=== PATIENT | female | born 1965 | race Caucasian/White ===

== ENCOUNTER → 2017-02-05 | Day surgery (SDC) | payer BC ==
[~2017-02-05] MED LIST: BUPIVACAINE/EPINEPHRINE 0.5% 50 ML VIAL ONE; ISOSULFAN BLUE 50 MG/5 ML VIAL SQ ONE; LACTATED RINGER'S 1000 ML INJ 1,000 ML ONE; MIDAZOLAM HCL 2 MG/2 ML VIAL ONE; ONDANSETRON HCL 4 MG/2 ML VIAL IV PUSH ONE; PROPOFOL 200 MG/20 ML AMP IV ONE; ceFAZolin 2 GM PREMIX 50 ML ONE
--- NOTE | 2017-02-05 22:37 | TN ---
cc: NELY SIFUENTES M.D. DATE OF SURGERY 02/05/2017 PREOPERATIVE DIAGNOSIS Invasive ductal carcinoma of the left breast. POSTOPERATIVE DIAGNOSIS Invasive ductal carcinoma of the left breast. PROCEDURES PERFORMED 1. Injection and excision sentinel lymph nodes left axilla. 2. Needle-localized left breast lumpectomy. 3. Placement intraoperative radiation therapy device. SURGEON Nely Sifuentes MD WEATHER [employer]CHOR [place] Royla ANESTHESIA General LMA. COMPLICATIONS None. INDICATIONS FOR PROCEDURE Ms. Coreas is a very pleasant 51-year-old female who was noted to have left breast mammographic abnormality. She underwent percutaneous biopsy and it was found to be an invasive ductal carcinoma. She underwent MRI imaging which did not show any additional lesions of concern. The patient was offered lumpectomy versus mastectomy. The patient elected have lumpectomy. The patient referred to Dr. Jc Carpenter of radiation therapy who offered whole breast, partial breast or intraoperative radiation therapy. The patient elected to have intraoperative radiation therapy. Risks and benefits of all procedures was discussed with her in detail and she was agreeable. INTRAOPERATIVE FINDINGS Left axillary sentinel node was immediately identified, found be blue and have a count of 6026. A second smaller node was identified and found have a count of 396. A third smaller node was also identified and found have a count of 2947. It should be noted the sentinel nodes 2 and 3 were not blue. Axillary tissue where the first two sentinel nodes were identified contained a large amount of blue dye and therefore, was excised and sent as additionally axillary tissue. No other palpable nodes were identified. DETAILS OF PROCEDURE The patient was identified, brought to the operating room placed supine on the operating table. After adequate general anesthesia achieved with LMA, the left breast was prepped and draped in standard surgical fashion. 5 cc of isosulfan blue was injected in the periareolar space as well as along the wire localization which occurred from lateral to medial in the upper inner quadrant of the left breast. This was then massaged into the breast. Several minutes were allowed to pass. Probe was used to identify the approximate location of the sentinel node which had been marked by radiology preoperatively. 0.25% Marcaine was injected in the axilla directly overlying the site of maximum intensity. A semilunar axillary incision was then made. Dissection was carried down through subcutaneous tissue into the axilla proper. Immediately we encountered a blue node with multiple blue channels going to it. This was grasped with Allis clamp and excised. This was labeled sentinel node number one and found have a 10-second count of 6026. Once we removed this node there were two smaller nodes adjacent to it which were also demonstrating significant activity. The first node was smaller and pink, it did not have any blue dye and was found have a count 376. The node just above this one was also quite active but did not have any blue dye. It was excised and found have a 10-second count of 2947. Once we excised these two nodes there was additional ammy tissue adjacent to the area which a large amount of blue dye had infiltrated. There were no palpable nodes but there was noted to be a moderate amount of activity with the probe and a large amount of blue dye. This was grasped with Allis clamp and excised with generous margins to include all of the blue dye. Once we did this, there were no other areas of blue dye nor was there any significant activity noted with the probe. By direct palpation I could not palpate any additional nodes. At this point we felt comfortable that we had a generous sampling of the axillary nodes by both the probe and blue dye technique. There were no palpable nodes noted except for the very first node which was excised. Wound was copiously irrigated normal saline solution. Because we did do a fair amount of dissection in the axilla, I elected to place a 7-Estonian drain. 0.25% Marcaine was injected in the left axilla and the drain was brought in through a separate stab wound incision. Drain was secured with a 4-0 nylon suture. Wound was copiously irrigated with normal saline solution and closed in two layers using 3-0 Vicryl and a 4-0 Monocryl. The wound was then infiltrated with 10 mL of 0.25% Marcaine through the drain. Drain was not placed on suction at this time. Attention now directed to the left breast. In the left breast the patient had a wire localization coming in from a lateral approach to the mass which was in the upper inner quadrant of the left breast at approximately the 10 to 11 o'clock position. Because the lesion was quite high we were unable to do a periareolar incision and therefore did an incision care home between the lesion and the areola sparing within the patient's natural kelly lines. A semilunar incision was made after anesthetizing the skin and subcutaneous tissue with 0.25% Marcaine. Subcutaneous skin flap was then raised cephalad to the wire. Base of the wire was identified in the medial position. By imaging the mass appeared to be between the tip of the wire and the miryam. We went ahead excised all breast tissue down to the base of the wire with a generous margin. Generous margins were then obtained inferiorly and laterally. Dissection then proceeded down deep to the pectoralis major muscle as the patient had subpectoral implants. The wire was then transected and the specimen was then removed. The wire was inspected and again there was generous margins in all directions with the wire in the center of the specimen. All tissue was excised posteriorly as we were able to clearly visualize the pectoralis major muscle. Short stitch was placed superior, a long stitch was placed medial and the wire demarcated the lateral position. Specimen sent to radiology where Dr. Ortiz called back stating the ultrasound demonstrated the mass to be in the center of the specimen with generous margins by ultrasound imaging. Specimen sent to pathology. Wound was then copiously irrigated with normal saline solution. The wound was inspected and was found to have fairly significant medial to lateral dimension. As the lesion was located in the upper inner quadrant of the breast, I went ahead and closed the breast tissue down in the lateral position where the wire localization had occurred. This was accomplished using 3-0 Vicryl suture. Once we did this the cavity was sized up. We selected a 4.5 probe for the intraoperative radiation device. This was tested in the wound and found have good approximation all the way around. We also checked the depth of the probe and it was found to be greater than 1 cm in all directions. The closest margin was the superior margin. We measured this margin twice, one at 1 cm and one at 8 mm. Therefore we went ahead and attached the device to the machine. The machine was then sterilely draped out. The machine was then brought into the operative field. A 0 Prolene suture was used to make a pursestring around the subcutaneous tissue of the breast. The probe was then introduced and trajected in a lateral to medial fashion and toward the upper inner quadrant of the breast. The pursestring was then cinched down. The skin edges were then reapproximated up onto the shaft of the probe. The ultrasound was then brought in the operative field and Dr. Carpenter measured all dimensions to greater than a centimeter. We did double-check the superior margin which was the closest to the skin and we had tunneled up to the lesion. This measured 8 mm the first time and 1 cm the second time. At this point I felt comfortable with all margins. The shaft of the intraoperative radiation device was covered with a moist laparotomy pad. The lead panchal were then placed. The patient then received approximately 25 minutes of intraoperative radiation therapy. Please see Dr. Carpenter's documentation for the specifics. Once this was completed we reentered the room. The Prolene suture was taken down. The probe was then removed and passed off of the operative field. Wound was copiously irrigated with normal saline solution. Bleeding points were controlled electrocautery Bovie. Wound was then irrigated out a second time and all loose fatty particles were removed. The lumpectomy cavity was then filled with 10 mL of 0.25% Marcaine. The subcutaneous tissue was then closed with 3-0 Vicryl and skin was closed with 4-0 Vicryl. Sterile dressings were applied. The patient was awakened, brought to recovery in stable condition. Please note the presence of the DISTRICT [employer] first assist was medically necessary due to the surgical complexity of the case as well as the knowledge of my surgical technique. She was present and scrubbed for the entire case. MD ALISON Girard/COREY /9:47 PM /10:14 PM SANDEE
--- NOTE | 2017-02-06 08:10 | RADONCENDT ---
END OF TREATMENT SUMMARY PRIMARY REFERRING PHYSICIAN: Leandro Salas CC: Leandro Salas DIAGNOSIS: Primary C50.212 - Malignant neoplasm of upper-inner quadrant of left female breast, Diagnosed 12/03/2016 (Active) PRESCRIPTION AND TREATMENT: 2000 cGy to surface of applicator-4.0 TREATED PLAN FRACTIONS AND DATES: Course: One fraction delivered on 02/05/2017 TOLERANCE: Patient completed treatment without complications. FOLLOW UP PLAN: Patient to be seen in 2 weeks or so to see Dr. Salas this Saturday. Jc Carpenter MD 02/06/2017 8:12:58 AM This report was verified and signed electronically [facility] [address] [place] [address] RADIATION ONCOLOGY END OF TREATMENT SUMMARY Date: 02/06/2017 Patient Name: Tessy Coreas Date of : 1965 Age: 51 Sex: Female
--- NOTE | 2017-02-06 08:12 | RADONCOP ---
OPERATIVE REPORT DATE OF SURGERY: 02/05/2017 REFERRING PHYSICIAN: Leandro Salas PREOPERATIVE DIAGNOSIS: C50.212 - Malignant neoplasm of upper-inner quadrant of left female breast, Diagnosed 12/03/2016 (Active) POSTOPERATIVE DIAGNOSIS: C50.212 - Malignant neoplasm of upper-inner quadrant of left female breast, Diagnosed 12/03/2016 (Active) PROCEDURE: Intraoperative Radiation Therapy to the . SURGEON: Leandro Salas ANESTHESIA: General ESTIMATED BLOOD LOSS: Minimal. INDICATIONS: Patient is a 51 year old female presenting with left breast cancer. She has elected to receive targeted intraoperative radiation therapy to the left breast. DESCRIPTION OF PROCEDURE: Patient was taken to the operating room and placed on the table in the supine position. Following induction of general anesthesia, the Zeiss and arm were prepped and draped sterilely. Ultrasound was performed of the breast to document the location of the breast malignancy. The wound was prepared for intraoperative radiation therapy. Based on the diameter of the cavity, a 4.0 cm radiation applicator was selected for the delivery of intraoperative radiation therapy. The applicator was then sterilely mounted onto the Intrabeam Stand. Retracting sutures were placed within the skin to be used to retract the skin edges away from the radiation source. The 4.0 cm Radiation applicator was then sterilely inserted into the wound. The superficial purse-string suture was tied down. Ultrasound was performed of the breast to document conformity of the surgical margins and the distance from the applicator to the skin surface (0.9 cm). The retracting sutures were then secured and a moistened lap pad was placed on the skin surface, followed by an external radiation barrier. Intraoperative radiotherapy was then initiated by the Radiation Oncologist. Total treatment time was 25-30 minutes. Upon completion of the intraoperative radiotherapy treatment, the radiation applicator, purse-string sutures and retracting sutures were removed from the wound. The wound was once again irrigated. Hemostasis was confirmed. The patient was then turned back over to the surgeon, Leandro Salas in stable condition for completion of surgical procedure. Jc Carpenter MD 02/06/2017 8:12:10 AM This report was verified and signed electronically [facility] [address] [place] [address] RADIATION ONCOLOGY OPERATIVE REPORT Date: 02/06/2017 Patient Name: Tessy Coreas
--- NOTE | 2017-02-08 11:10 | RF ---
cc: JC CARPENTER MD, MARK W. M.D. F o l l o w u p R e p o r t DATE OF SERVICE: 02/05/2017 AGE: 51 SEX: F Ms. Coreas is a 51-year-old female. She underwent lumpectomy, [place] node evaluation performed by Dr. Salas. Subsequently underwent intraoperative radiation therapy. A 4.0 device used. I was present during the entire treatment delivery and ultrasound confirmed proximity of device surface to skin 0.9 cm or more. Photo documentation done of superior, as well as medial areas. The closest area was 0.9 cm. All other were greater than one. She subsequently underwent closure. She sees Dr. Salas this Saturday. We will plan follow-up in approximately two weeks. Jc Carpenter MD Radiation Oncologist JOSE A/TEREZA /4:47 PM /11:12 AM
--- NOTE | 2017-02-08 11:12 | RF ---
cc: MAITE CARPENTER MD, MARK W. M.D. F o l l o w u p R e p o r t DATE OF SERVICE: 02/05/2017 AGE: 50 SEX: F Ms. Coreas is a 50-year-old female who underwent intraoperative radiation therapy. 20 Gy prescribed to the surface. 4.0 cone used. I was present for the entire treatment delivery. Dr. Leandro Salas performed lumpectomy, sentinel node and the closure. Plan follow-up in approximately two weeks. Maite Carpenter MD Radiation Oncologist JOSE A/TEREZA /4:48 PM /11:14 AM
== END | disposition home or self-care (01) ==
LOC: ESDC 09:20
PROVIDERS: ATTEND Surgery Trauma Surgery
DX: C50.212 Malignant neoplasm of upper-inner quadrant of left female breast (principal)
CPT/HCPCS: 00400; 01610; 19125; 19298; 38525; 38792; 77290; 77300; 77334; 77370; 77424; 88305; 88307; J0690; J2250; J2405; J3010; J7120; Q9968; 77469; 88309